=== PATIENT | female | born 1945 | race Asian ===

== ENCOUNTER → 2018-01-14 | Outpatient (CLI) | payer MEDICARE ==
[~2018-01-14] MED LIST: ALBU8.5H8 INH; AMLO5TAB4 PO; ASPI-496 PO; ASPI-515 PO; ATEN25TA PO; B-COMPLEX PO; CALC250T PO; CHOL2000 PO; GUAI400T66 PO; LACT1CAP43 PO; LORA10CA PO; LUTE40CA PO; MONT10TA6 PO; NAPH15DR47 EACHEYE; OMEGA-3 PO; PANT40TA3 PO; PLANT ENZYMES PO; RANI150T4 PO; REGADENOSON 0.4 MG/5 ML SYRINGE ONE; SIMV20TA PO; TRIA10.8 NAS; TURM5000 PO; VALS1TAB3 PO
== END | disposition home or self-care (01) ==
LOC: CFH 10:35
PROVIDERS: ATTEND Internal Medicine Cardiovascular Disease
DX: I35.8 Other nonrheumatic aortic valve disorders (principal); Z88.1 Allergy status to other antibiotic agents
CPT/HCPCS: 78452; 93017; 93306; A9502; J2785

== ENCOUNTER 2018-05-16 15:32 | Inpatient (IN) | payer MEDICARE ==
[~2018-05-16] VITALS: Ht 157.5 cm; Wt 71.0 kg
[~2018-05-16 15:32] MED LIST changes: -REGADENOSON 0.4 MG/5 ML SYRINGE ONE
[2018-05-16] MEDS ORDERED: SODIUM CHLORIDE FLUSH 10ML SYR IVF ONE (16:00)
[2018-05-16] MEDS ORDERED: CEFTRIAXONE 1,000 MG in SODIUM CHLORIDE 0.9% 50 ML IVPB ONE (16:00)
[2018-05-16] MEDS ORDERED: CEFTRIAXONE PMX 1GM/50ML 50 ML IVPB ONE (16:00)
[2018-05-16 16:26] LABS: BASOPHILS # (AUTO) 0.02 x10^3/uL (0-0.1); BASOPHILS % (AUTO) 0 % (0-1); EOSINOPHILS % (AUTO) 0 % (1-7); LYMPHOCYTES # (AUTO) 0.91 x10^3/uL (1-3.4); LYMPHOCYTES % (AUTO) 16 % (22-44); MD NO; MEAN CORPUSCULAR HEMOGLOBIN 30.2 pg (27.0-34.8); MEAN CORPUSCULAR HGB CONC 33.6 g/dL (32.4-35.8); MEAN CORPUSCULAR VOLUME 89.9 fL (80-100); MEAN PLATELET VOLUME 7.2 fL (7.4-10.4); MONOCYTES # (AUTO) 0.42 x10^3/uL (0.2-0.8); MONOCYTES % (AUTO) 7 % (2-9); NEUTROPHILS # (AUTO) 4.47 x10^3/uL (1.8-6.8); NEUTROPHILS % (AUTO) 77 % (42-75); PLATELET COUNT 196 x10^3/uL (130-400); RED BLOOD COUNT 4.92 x10^6/uL (3.82-5.3); RED CELL DISTRIBUTION WIDTH 12.6 % (9.6-15.2)
[2018-05-16 16:29] LABS: ALANINE AMINOTRANSFERASE 76 U/L (12-78); ALBUMIN 3.7 g/dL (3.4-5.0); ANION GAP 9 mmol/L (5-15); CALCIUM 8.4 mg/dL (8.5-10.1); CHLORIDE 102 mmol/L (98-107); CREATININE 0.86 mg/dL (0.55-1.02)
[2018-05-16] MEDS ORDERED: CEFTRIAXONE PMX 1GM/50ML 50 ML ONE (16:29)
[2018-05-16 16:31] LABS: ALKALINE PHOSPHATASE 92 U/L (45-117); BILIRUBIN,TOTAL 1.1 mg/dL (0.2-1.0); TOTAL PROTEIN 7.6 g/dL (6.4-8.2)
[2018-05-16 16:35] LABS: MICROSCOPIC NOT IND
[2018-05-16 16:40] LABS: CULTURE INDICATED? NO
[2018-05-16] MEDS ORDERED: POTASSIUM CHLORIDE 20 MEQ TAB.ER.PRT ONE ×2 (16:52→23:08)
[2018-05-16] MEDS ORDERED: POTASSIUM CHLORIDE 20 MEQ TAB.ER.PRT PO ONE ×2 (17:00→17:30)
[2018-05-16] MEDS ORDERED: LOSA25TA25 PO (17:13)
[2018-05-16] MEDS ORDERED: GLYB2.5T2 PO (17:13)
[2018-05-16] MEDS ORDERED: GLYB5TAB3 PO (17:13)
[2018-05-16] MEDS ORDERED: CAYE450C4 PO (17:13)
[2018-05-16] MEDS ORDERED: ATOR20TA PO (17:13)
[2018-05-16] MEDS ORDERED: HYDR12.517 PO (17:13)
--- NOTE | 2018-05-16 17:15 | NUR ---
ANTIBIOTIC INFUSED AFTER BC X 2 DRAWN. POTASSIUM GIVEN PER ERP ORDER. PT IN NAD. VSS, WITH PULSE OX READING 90-92% ON RA. PT ABLE TO GET UP TO BR WITHOUT NEED FOR ASSISTANCE BUT BREATHING SLIGHTLY LABORED FOLLOWING EXERTION. PT UPDATED ON POC, CALL LIGHT WITHIN REACH. AWAITING ADMISSION.
[2018-05-16] MEDS ORDERED: ALBUTEROL SULFATE 2.5 MG/3 ML NPPB SCH (17:30)
[2018-05-16] MEDS ORDERED: ONDANSETRON 2MG/ML, 2ML IVPush PRN (17:30)
[2018-05-16] MEDS ORDERED: CETIRIZINE 10 MG TABLET PO PRN (17:30)
[2018-05-16] MEDS ORDERED: ACETAMINOPHEN 325 MG TABLET PO PRN (17:30)
[2018-05-16] MEDS ORDERED: ONDANSETRON ODT 4 MG PO PRN (17:30)
[2018-05-16] MEDS ORDERED: ALBUTEROL SULFATE 2.5 MG/3 ML NPPB PRN (17:30)
--- NOTE | 2018-05-16 17:54 | NUR ---
ALEXANDER RN NOTE: REPORT CALLED FOR PATIENT. PATIENT UPDATED ON PLAN OF CARE.
[2018-05-16 18:15] VITALS: BP 110/65
[2018-05-16] MEDS: FAMOTIDINE 20 MG TABLET PO SCH (19:57)
[2018-05-16] MEDS: SODIUM CHLORIDE 0.9% 1,000 ML IV SCH (19:57)
[2018-05-16] MEDS: DOXYCYCLINE 100 MG in DEXTROSE 5% 250 ML IV SCH (19:57)
[2018-05-16] MEDS: ENOXAPARIN 40 MG/0.4 ML SQ SCH (19:58)
[2018-05-16] MEDS: SIMVASTATIN 20 MG TABLET PO SCH (19:58)
[2018-05-16] MEDS: FLUTICASONE NASAL SPRAY 16GM NAS SCH (21:00)
[2018-05-16] MEDS: INSULIN LISPRO 100 UNITS/ML, PEN SQ-INSULIN SCH (21:00)
[2018-05-16 23:59] LABS: RAPID INFLUENZA A Negative (Negative); RAPID INFLUENZA B Negative (Negative)
[2018-05-17 00:49] VITALS: BP 106/61
[2018-05-17 06:04] LABS: BASOPHILS # (AUTO) 0.01 x10^3/uL (0-0.1); BASOPHILS % (AUTO) 0 % (0-1); CHLORIDE 108 mmol/L (98-107); EOSINOPHILS % (AUTO) 0 % (1-7); LYMPHOCYTES # (AUTO) 1.33 x10^3/uL (1-3.4); LYMPHOCYTES % (AUTO) 28 % (22-44); MD NO; MEAN CORPUSCULAR HEMOGLOBIN 30.7 pg (27.0-34.8); MEAN CORPUSCULAR HGB CONC 34.3 g/dL (32.4-35.8); MEAN CORPUSCULAR VOLUME 89.8 fL (80-100); MEAN PLATELET VOLUME 7.4 fL (7.4-10.4); MONOCYTES # (AUTO) 0.58 x10^3/uL (0.2-0.8); MONOCYTES % (AUTO) 12 % (2-9); NEUTROPHILS # (AUTO) 2.86 x10^3/uL (1.8-6.8); NEUTROPHILS % (AUTO) 60 % (42-75); PLATELET COUNT 147 x10^3/uL (130-400); RED BLOOD COUNT 4.36 x10^6/uL (3.82-5.3); RED CELL DISTRIBUTION WIDTH 12.8 % (9.6-15.2)
[2018-05-17 06:11] LABS: ALANINE AMINOTRANSFERASE 67 U/L (12-78); ALBUMIN 3.2 g/dL (3.4-5.0); ALKALINE PHOSPHATASE 79 U/L (45-117); ANION GAP 9 mmol/L (5-15); BILIRUBIN,TOTAL 0.9 mg/dL (0.2-1.0); CALCIUM 8.3 mg/dL (8.5-10.1); CREATININE 0.52 mg/dL (0.55-1.02); TOTAL PROTEIN 6.7 g/dL (6.4-8.2)
[2018-05-17] MEDS: SODIUM CHLORIDE 0.9% 1,000 ML IV SCH ×2 (06:36→19:46)
[2018-05-17 06:56] VITALS: BP 125/75
[2018-05-17] MEDS: INSULIN LISPRO 100 UNITS/ML, PEN SQ-INSULIN SCH ×4 (07:05→21:00)
[2018-05-17] MEDS: AMLODIPINE 5 MG TABLET PO SCH (07:52)
[2018-05-17] MEDS: DOXYCYCLINE 100 MG in DEXTROSE 5% 250 ML IV SCH ×2 (07:52→19:45)
[2018-05-17] MEDS: MONTELUKAST 10 MG TABLET PO SCH (07:52)
[2018-05-17] MEDS: PANTOPROZOLE 40MG TABLET PO SCH (07:52)
[2018-05-17] MEDS: HYDROCHLOROTHIAZIDE 12.5 MG CAPSULE PO SCH (07:53)
[2018-05-17] MEDS: VALSARTAN 80 MG TABLET PO SCH (07:54)
[2018-05-17] MEDS: ATENOLOL 25 MG TABLET PO SCH (07:54)
[2018-05-17] MEDS: ASPIRIN 81 MG TABLET EC PO SCH (07:54)
[2018-05-17] MEDS: CALCIUM CITRATE 950 MG TABLET PO SCH (07:55)
[2018-05-17] MEDS: CHOLECALCIFEROL 1,000 UNIT TABLET PO SCH (07:55)
[2018-05-17] MEDS: FLUTICASONE NASAL SPRAY 16GM NAS SCH ×2 (07:59→21:00)
[2018-05-17] MEDS: GUAIFENESIN ER 600 MG TABLET PO SCH ×2 (11:12→21:17)
[2018-05-17] MEDS: BENZONATATE 100 MG CAPSULE PO SCH ×3 (11:12→21:17)
[2018-05-17 12:15] VITALS: BP 110/60
[2018-05-17] MEDS ORDERED: CEFTRIAXONE PMX 1GM/50ML 50 ML IV SCH (17:00)
[2018-05-17 19:19] VITALS: BP 115/68
[2018-05-17] MEDS: ENOXAPARIN 40 MG/0.4 ML SQ SCH (19:46)
[2018-05-17] MEDS: FAMOTIDINE 20 MG TABLET PO SCH (21:17)
[2018-05-17] MEDS: SIMVASTATIN 20 MG TABLET PO SCH (21:17)
[2018-05-18 02:33] VITALS: BP 109/66
[2018-05-18] MEDS: INSULIN LISPRO 100 UNITS/ML, PEN SQ-INSULIN SCH (06:19)
[2018-05-18 06:32] VITALS: BP 116/68
[2018-05-18] MEDS: DOXYCYCLINE 100 MG in DEXTROSE 5% 250 ML IV SCH (08:24)
[2018-05-18] MEDS: FLUTICASONE NASAL SPRAY 16GM NAS SCH (08:25)
[2018-05-18] MEDS ORDERED: BENZ-17 PO (08:58)
[2018-05-18] MEDS ORDERED: DOXY100T PO (08:58)
[2018-05-18] MEDS ORDERED: CEFD300C37 PO (08:58)
[2018-05-18] MEDS: GUAIFENESIN ER 600 MG TABLET PO SCH (09:00)
[2018-05-18] MEDS: ATENOLOL 25 MG TABLET PO SCH (09:00)
[2018-05-18] MEDS: HYDROCHLOROTHIAZIDE 12.5 MG CAPSULE PO SCH (09:00)
[2018-05-18] MEDS: AMLODIPINE 5 MG TABLET PO SCH (09:00)
[2018-05-18] MEDS: PANTOPROZOLE 40MG TABLET PO SCH (09:00)
[2018-05-18] MEDS: CHOLECALCIFEROL 1,000 UNIT TABLET PO SCH (09:00)
[2018-05-18] MEDS: MONTELUKAST 10 MG TABLET PO SCH (09:00)
[2018-05-18] MEDS: VALSARTAN 80 MG TABLET PO SCH (09:00)
[2018-05-18] MEDS: ASPIRIN 81 MG TABLET EC PO SCH (09:00)
[2018-05-18] MEDS: SODIUM CHLORIDE 0.9% 1,000 ML IV SCH (09:01)
[2018-05-18] MEDS: CALCIUM CITRATE 950 MG TABLET PO SCH (09:11)
[2018-05-18] MEDS: BENZONATATE 100 MG CAPSULE PO SCH (09:11)
[2018-05-18 10:03] VITALS: BP 124/55
== END 2018-05-18 10:29 | disposition home or self-care (01) | DRG 194 ==
LOC: ED 17:24 → 4NOR 17:25 → DCLOUNGE 05-18 10:17
PROVIDERS: ADMIT Internal Medicine; ATTEND Internal Medicine
DX: J15.9 Unspecified bacterial pneumonia (principal); E87.1 Hypo-osmolality and hyponatremia; E05.00 Thyrotoxicosis with diffuse goiter without thyrotoxic crisis or storm; E11.9 Type 2 diabetes mellitus without complications; E78.00 Pure hypercholesterolemia, unspecified; E78.5 Hyperlipidemia, unspecified; E87.6 Hypokalemia; I10 Essential (primary) hypertension; J45.909 Unspecified asthma, uncomplicated; K21.9 Gastro-esophageal reflux disease without esophagitis; R09.02 Hypoxemia; Z79.84 Long term (current) use of oral hypoglycemic drugs; Z82.49 Family history of ischemic heart disease and other diseases of the circulatory system; Z83.3 Family history of diabetes mellitus
CPT/HCPCS: 36415; 71045; 80053; 81003; 82962; 83605; 84145; 85025; 87040; 87400; 93005; 96374; 99285; G0378; J0696; J1650; J7060; J1815; J7030

== ENCOUNTER → 2020-05-15 | Outpatient (CLI) | payer MEDICARE ==
[~2020-05-15] MED LIST changes: +ATOR20TA PO; +BENZ-17 PO; +CAYE450C4 PO; +CEFD300C37 PO; +DOXY100T PO; +GLYB2.5T2 PO; +GLYB5TAB3 PO; -GUAI400T66 PO; +GUAI400T81 PO; +HYDR12.517 PO; +LOSA25TA25 PO; +REGADENOSON 0.4 MG/5 ML SYRINGE ONE
== END | disposition home or self-care (01) ==
LOC: CFH 07:26
PROVIDERS: ATTEND Internal Medicine Cardiovascular Disease
DX: I35.8 Other nonrheumatic aortic valve disorders (principal); I10 Essential (primary) hypertension; I25.10 Atherosclerotic heart disease of native coronary artery without angina pectoris; E11.9 Type 2 diabetes mellitus without complications; Z82.49 Family history of ischemic heart disease and other diseases of the circulatory system
CPT/HCPCS: 78452; 93017; 93306; A9502; J2785